=== PATIENT | male | born 1995 ===

== ENCOUNTER 2021-06-25 11:32 | Emergency (ER) | payer BC ==
[2021-06-25 13:17] VITALS: BP 125/67
== END 2021-06-25 15:45 | disposition home or self-care (01) ==
LOC: ED 11:32
DX: S51.812A Laceration without foreign body of left forearm, initial encounter (principal); Z79.899 Other long term (current) drug therapy; W25.XXXA Contact with sharp glass, initial encounter; Y93.89 Activity, other specified; Y92.89 Other specified places as the place of occurrence of the external cause; Y99.8 Other external cause status
CPT/HCPCS: 90471; 90715; 99283; Q0162